=== PATIENT | female | born 1995 | race Two or more races ===

== ENCOUNTER 2020-03-13 12:34 | Outpatient (REF) | payer OTHER, SELFPAY ==
--- NOTE | ~2020-03-13 | XR_ITS ---
EXAMINATION: XR KNEE, RIGHT XR KNEE, LEFT CLINICAL INFORMATION: Knee pain COMPARISON: None TECHNIQUE: 2 views of the left knee. 2 views of the right knee. This includes AP upright views. FINDINGS: Left knee: No fracture or subluxation. Compartmental joint spaces are maintained. No joint effusion. The soft tissues are unremarkable. Right knee: No fracture or subluxation. Compartmental joint spaces are maintained. No joint effusion. The soft tissues are unremarkable. XR/XR knee LT 2V IMPRESSION: Normal appearance of both knees.
--- NOTE | ~2020-03-13 | XR_ITS ---
EXAMINATION: XR KNEE, RIGHT XR KNEE, LEFT CLINICAL INFORMATION: Knee pain COMPARISON: None TECHNIQUE: 2 views of the left knee. 2 views of the right knee. This includes AP upright views. FINDINGS: Left knee: No fracture or subluxation. Compartmental joint spaces are maintained. No joint effusion. The soft tissues are unremarkable. Right knee: No fracture or subluxation. Compartmental joint spaces are maintained. No joint effusion. The soft tissues are unremarkable. XR/XR knee RT 2V IMPRESSION: Normal appearance of both knees.
[2020-03-13 13:18] LABS: MANUAL DIFF FLAG NO
[2020-03-13 13:48] LABS: Basophils Percent Auto 0.3 % (0-2); Eosinophils Absolute Auto 0.2 X10*3/uL (0.0-0.4); Eosinophils Percent Auto 1.9 % (0-4); Hematocrit 36.9 % (37-47); Hemoglobin 11.9 g/dl (12.0-16.0); Imm Gran Abs Auto 0.04 X10*3/uL (0.00-0.03); Imm Gran Pct Auto 0.3 % (0.0-0.4); Lymphocytes Percent Auto 17.4 % (20-40); Mean Corpuscular HGB Conc 32.2 g/dl (31.0-35.0); Mean Corpuscular Hemoglobin 27.8 pg (27.0-33.0); Mean Corpuscular Volume 86.2 fL (80-98); Mean Platelet Volume 10.6 fL (9.4-12.3); Monocytes Absolute Auto 0.6 X10*3/uL (0.1-1.2); Monocytes Percent Auto 5.4 % (2-11); Neutrophils Absolute Auto 8.7 X10*3/uL (2.0-8.3); Neutrophils Percent Auto 74.7 % (45-73); Platelet Count 330 X10*3/uL (160-400); Red Blood Count 4.28 X10*6/uL (4.20-5.50); Red Cell Distribution Width 13.6 % (11.0-16.0); White Blood Count 11.7 X10*3/uL (4.8-10.8)
[2020-03-13 14:36] LABS: Anion Gap 11 (12-20); Blood Urea Nitrogen 10 mg/dL (9-16); Carbon Dioxide 27 mmol/L (22-29); Chloride 104 mmol/L (96-108); Cholesterol 111 mg/dL; Estimated Glomerular Filt Rate > 60; Glucose Fasting 78 mg/dL (60-99); HDL Cholesterol 42 mg/dL; LDL Cholesterol Calculated 61 mg/dl; Potassium 3.7 mmol/L (3.3-5.1); Rheumatoid Factor < 15.0 IU/mL (<15.0); Sodium 138 mmol/L (135-145); Triglycerides 44 mg/dL
[2020-03-13 14:39] LABS: Erythrocyte Sedimentation Rate 9 MM/HR (0-20)
== END 2020-03-13 12:35 | disposition home or self-care (01) ==
LOC: HO.LAB 12:34
PROVIDERS: PCP Nurse Practitioner Family; Visit Provider Nurse Practitioner Family
DX: M25.562 Pain in left knee (principal); M25.561 Pain in right knee
CPT/HCPCS: 36415; 73560; 80048; 80061; 85025; 85652; 86431

== ENCOUNTER 2021-05-11 15:08 | Emergency (ER) | payer OTHER, SELFPAY ==
--- NOTE | 2021-05-11 | ECG_ITS ---
Test Reason : cp pressure Blood Pressure : / mmHG Vent. Rate : 087 BPM Atrial Rate : 087 BPM P-R Int : 126 ms QRS Dur : 072 ms QT Int : 362 ms P-R-T Axes : 078 030 049 degrees QTc Int : 435 ms Normal sinus rhythm Possible Left atrial enlargement Borderline ECG No previous ECGs available Referred By: Generic ED Physician Electronically Signed By:JAYNE ZEE MD
--- NOTE | ~2021-05-11 | XR_ITS ---
EXAMINATION: XR CHEST CLINICAL INFORMATION: Chest pain COMPARISON: None TECHNIQUE: Frontal view of the chest was obtained. FINDINGS: The lungs are well expanded. There is no focal consolidation, edema, or effusion. No pneumothorax. The cardiomediastinal silhouette is within normal limits. No acute osseous abnormality. Bilateral nipple piercing. XR/XR chest 1V IMPRESSION: Clear lungs.
[2021-05-11 16:33] VITALS: BP 128/71; PULSE 90; RESP 20; TEMP 37.2; O2SAT 98; BMI 23.6
[2021-05-11 17:46] LABS: MANUAL DIFF FLAG NO
[2021-05-11 17:49] LABS: Basophils Percent Auto 0.1 % (0-2); Eosinophils Percent Auto 0.1 % (0-4); Hemoglobin 12.6 g/dl (12.0-16.0); Imm Gran Abs Auto 0.02 X10*3/uL (0.00-0.03); Imm Gran Pct Auto 0.3 % (0.0-0.4); Lymphocytes Absolute Auto 0.6 X10*3/uL (1.2-4.9); Lymphocytes Percent Auto 8.2 % (20-40); Mean Corpuscular HGB Conc 32.3 g/dl (31.0-35.0); Mean Corpuscular Hemoglobin 27.5 pg (27.0-33.0); Mean Corpuscular Volume 85.2 fL (80.0-98.0); Mean Platelet Volume 9.6 fL (9.4-12.3); Monocytes Absolute Auto 0.9 X10*3/uL (0.1-1.2); Monocytes Percent Auto 13.2 % (2-11); Neutrophils Absolute Auto 5.3 x10*3/uL (2.0-8.3); Neutrophils Percent Auto 78.1 % (45-73); Platelet Count 330 X10*3/uL (160-400); Red Blood Count 4.58 X10*6/uL (4.20-5.50); Red Cell Distribution Width 13.3 % (11.0-16.0); White Blood Count 6.7 X10*3/uL (4.8-10.8)
[2021-05-11 18:02] LABS: Anion Gap 11 (12-20); Blood Urea Nitrogen 9 mg/dL (9-16); Calcium 9.3 mg/dL (8.4-10.2); Carbon Dioxide 26 mmol/L (22-29); Chloride 104 mmol/L (96-108); Creatinine Clr Calc Pharmacy 91.4; Estimated Glomerular Filt Rate > 60; Glucose Random 83 mg/dL (60-115); Potassium 3.7 mmol/L (3.3-5.1); Sodium 137 mmol/L (135-145)
[2021-05-11 18:08] LABS: Troponin-I High Sensitivity < 3.5 ng/L (<3.5-17.0)
[2021-05-11] MEDS: Acetaminophen 325 MG TABLET 650 MG PO (21:09)
[2021-05-11 22:47] VITALS: BP 120/67; PULSE 83; RESP 16; TEMP 37.2; O2SAT 97
--- NOTE | 2021-05-11 22:56 | ED_ITS ---
HPI - Chest Pain General Chief Complaint: Chest Pain Stated Complaint: chest pain and body aches Time Seen by Provider: 05/11/21 22:44 Source: patient Mode of arrival: ambulatory Limitations: no limitations History of Present Illness HPI narrative: Patient is 26-year-old female with no significant past medical history. Presents emergency department for evaluation of chest pain/pressure with onset this morning upon awakening and feelings of shortness of breath, generalized body aches, low-grade fever, had a sore throat yesterday, also having nausea and vomiting with some intermittent dizziness. Denies any sick contacts. Denies headache, vision changes, ear pain, drainage from the ears, cough, abdominal pa in, dysuria, urinary frequency/urgency/hesitancy, weakness. Related Data Previous Rx's Medication Instructions Recorded cyclobenzaprine 5 mg tablet 5 mg PO BEDTIME PRN #30 tab 04/08/20 meloxicam 15 mg tablet 15 mg PO DAILY PRN #30 tab 05/01/20 Allergies Allergy/AdvReac Type Severity Reaction Status Date / Time No Known Allergies Allergy Verified 05/11/21 16:35 Review of Systems Review of Systems: Constitutional: Positive fever No weight loss, chills, weakness or fatigue. ENT: Positive sore throat Skin: No rash or itching. Cardiovascular: Positive chest pain. No palpitations or pedal edema. Respiratory: Positive shortness of breath. No cough or sputum production. Gastrointestinal: Positive vomiting. No diarrhea. No constipation. No abdominal pain or blood in stool. Genitourinary: No burning micturition. No urinary frequency or incontinence. Neurologic: No headache, dizziness, syncope, unilateral weakness, ataxia, numbness or tingling in the extremities. No change in bowel or bladder control. Musculoskeletal: No muscle pain, back pain, joint pain or stiffness. Hematologic: No bleeding or bruising. Lymphatics: No enlarged lymph nodes. Psychiatric:No depression or anxiety. Yes all other systems are reviewed and are negative PMFSH Past Medical History Attestation statement: The following information was validated with the patient. Source: old records reviewed Medical History Pain in both knees Family History Family History Mother Kidney problem Diabetes Father Diabetes Social History Social History Alcohol intake: never Advance Directives: No Patient : No Physical Exam Vital Signs: Vital Signs: Last Vital Signs Temp 99.0 F 05/11/21 22:47 Pulse 83 05/11/21 22:47 Resp 16 05/11/21 22:47 BP 120/67 05/11/21 22:47 Pulse Ox 97 05/11/21 22:47 BMI result Body Mass Index 23.6 Vital signs have been reviewed as normal and appeared to be correct. Blood pressure normal.? Heart rate normal.? Respiration rate normal. Temperature normal.? Oxygen saturation normal. Appearance: Alert.?Oriented to person, place and time. No acute distress.?Normal affect. Eyes: Pupils equal, round and reactive to light.?EOMi. No Nystagmus. ENT: Pharynx normal.?? Neck: Normal inspection.? Neck supple.?? CVS: Heart sounds normal. Normal heart rate and rhythm.? Pulses normal.?? Respiratory: No respiratory distress.? Lung sounds clear to auscultation bilaterally?? Abdomen: Soft and non-tender. Normoactive bowel sounds. No pulsatile mass.?? Skin: Skin warm and dry.? Normal skin color.? Extremities: No lower extremity edema.? No calf ttp? Neuro: Moves all extremities spontaneously. Sensation intact bilaterally. CN II- XII intact. No focal neuro deficits. Ambulates with normal steady gait. Course Course Course Narrative: Patient is a 26-year-old female being evaluated for multiple complaints including chest pain, body aches intermittent dizziness nausea and vomiting, low-grade fever with sudden onset early this morning. Labs obtained from triage revealed an overall unremarkable CBC and BMP. Chest x-ray is normal, no consolidation edema or effusion. Wells score 0, PERC negative therefore unlikely to be PE. Reports significant improvement in her symptoms after receiving Tylenol in triage. Will obtain COVID-19 and influenza testing. Reevaluation(s) Reevaluation #1: COVID-19 testing is positive. She is well appearing, hemodynamically stable, nontoxic maintaining O2 saturation, clear full sentences. Discussed with Patient all results and findings. Discussed reasons to return back to the emergency department. Patient agrees with plan of care for discharge home. Time: 23:38 [facility] - Chest Pain Medical Records Data Attestation: I reviewed the patient's medical records. Lab Data Attestation: I reviewed the patient's lab results. Result diagrams: 05/11/21 14:16 05/11/21 14:16 Labs: Lab Results 05/11/21 05/11/21 05/11/21 Range/Units 14:16 14:16 14:16 WBC 6.7 (4.8-10.8) X10*3/uL RBC 4.58 (4.20-5.50) X10*6/uL Hgb 12.6 (12.0-16.0) g/dl Hct 39.0 (37.0-47.0) % MCV 85.2 (80.0-98.0) fL MCH 27.5 (27.0-33.0) pg MCHC 32.3 (31.0-35.0) g/dl RDW 13.3 (11.0-16.0) % Plt Count 330 (160-400) X10*3/uL MPV 9.6 (9.4-12.3) fL Immature Gran % (Auto) 0.3 (0.0-0.4) % Neut % (Auto) 78.1 H (45-73) % Lymph % (Auto) 8.2 L (20-40) % [place] % (Auto) 13.2 H (2-11) % Eos % (Auto) 0.1 (0-4) % Baso % (Auto) 0.1 (0-2) % Lymph # (Auto) 0.6 L (1.2-4.9) X10*3/uL [place] # (Auto) 0.9 (0.1-1.2) X10*3/uL Eos # (Auto) 0.0 (0.0-0.4) X10*3/uL Baso # (Auto) 0.0 (0.0-0.2) X10*3/uL Abs Immat Gran (auto) 0.02 (0.00-0.03) X10*3/uL Absolute Neuts (auto) 5.3 (2.0-8.3) x10*3/uL Absolute Nucleated RBC 0.000 (0.0-0.012) X10*3/uL Nucleated RBC % (auto) 0.0 (0.0-0.2) /100WBC Sodium 137 (135-145) mmol/L Potassium 3.7 (3.3-5.1) mmol/L Chloride 104 (96-108) mmol/L Carbon Dioxide 26 (22-29) mmol/L Anion Gap 11 L (12-20) BUN 9 (9-16) mg/dL Creatinine 0.71 (0.5-1.4) mg/dL Estim Creat Clear Calc 91.4 Estimated GFR > 60 Random Glucose 83 (60-115) mg/dL Calcium 9.3 (8.4-10.2) mg/dL Troponin I High Sens < 3.5 (<3.5-17.0) ng/L COVID-19 (DINORAH) (Negative) COVID-19 Clin Com Influenza Type A (JILLIAN) (Negative) Influenza Type B (JILLIAN) (Negative) Influenza A & B Note 05/11/21 05/11/21 Range/Units 22:51 22:51 WBC (4.8-10.8) X10*3/uL RBC (4.20-5.50) X10*6/uL Hgb (12.0-16.0) g/dl Hct (37.0-47.0) % MCV (80.0-98.0) fL MCH (27.0-33.0) pg MCHC (31.0-35.0) g/dl RDW (11.0-16.0) % Plt Count (160-400) X10*3/uL MPV (9.4-12.3) fL Immature Gran % (Auto) (0.0-0.4) % Neut % (Auto) (45-73) % Lymph % (Auto) (20-40) % [place] % (Auto) (2-11) % Eos % (Auto) (0-4) % Baso % (Auto) (0-2) % Lymph # (Auto) (1.2-4.9) X10*3/uL [place] # (Auto) (0.1-1.2) X10*3/uL Eos # (Auto) (0.0-0.4) X10*3/uL Baso # (Auto) (0.0-0.2) X10*3/uL Abs Immat Gran (auto) (0.00-0.03) X10*3/uL Absolute Neuts (auto) (2.0-8.3) x10*3/uL Absolute Nucleated RBC (0.0-0.012) X10*3/uL Nucleated RBC % (auto) (0.0-0.2) /100WBC Sodium (135-145) mmol/L Potassium (3.3-5.1) mmol/L Chloride (96-108) mmol/L Carbon Dioxide (22-29) mmol/L Anion Gap (12-20) BUN (9-16) mg/dL Creatinine (0.5-1.4) mg/dL Estim Creat Clear Calc Estimated GFR Random Glucose (60-115) mg/dL Calcium (8.4-10.2) mg/dL Troponin I High Sens (<3.5-17.0) ng/L COVID-19 (DINORAH) Positive A (Negative) COVID-19 Clin Com See Note Influenza Type A (JILLIAN) Negative (Negative) Influenza Type B (JILLIAN) Negative (Negative) Influenza A & B Note See Note Imaging Data Chest x-ray: Radiologist's impression: FINDINGS: The lungs are well expanded. There is no focal consolidation, edema, or effusion. No pneumothorax. The cardiomediastinal silhouette is within normal limits. No acute osseous abnormality. Bilateral nipple piercing. XR/XR chest 1V IMPRESSION: Clear lungs. ECG Data ECG #1: Interpretation: Rate: 87 Rhythm:? Normal sinus rhythm [place]:? Normal Normal P waves.? Normal JA.?? Normal QRS complex.?? ST T wave :??No ST-elevation, ST-depression, or T-wave inversion qTC: 435 prior studies:? None available for review The study has been interpreted contemporaneously by me. Discharge Plan Discharge Clinical Impression: COVID-19 Patient Disposition: Home, Self-Care Instructions: COVID-19 (Coronavirus Disease 2019) (ED) Additional Instructions: Please return to emergency department any new or worsening symptoms or concerns. Please contact your primary care provider to schedule follow-up visit within 1 week. You may return to work or school as of 05/16/2021 if your symptoms have improved, and have been without without fever for 24 hours without the use of Tylenol or ibuprofen. Prescriptions: No Action cyclobenzaprine 5 mg tablet 5 mg PO BEDTIME PRN (Reason: for muscle spasm) Qty: 30 0RF meloxicam 15 mg tablet 15 mg PO DAILY PRN (Reason: for pain) Qty: 30 0RF Stand Alone Forms: Work/School Release
[2021-05-11 23:08] LABS: COVID-19 Test Positive (Negative); IDNOW Serial# 08D9AD1C
[2021-05-11 23:15] LABS: Influenza A Negative (Negative); Influenza B2 Negative (Negative)
== END 2021-05-12 00:41 | disposition home or self-care (01) ==
PROVIDERS: Nurse Practitioner Family; Emergency Provider Emergency Medicine Emergency Medical Services
DX: U07.1 COVID-19 (principal); R50.9 Fever, unspecified
CPT/HCPCS: 36415; 71045; 80048; 84484; 85025; 87502; 87635; 93005; 99283; 99284